=== PATIENT | male | born 1975 | race Caucasian/White ===

== ENCOUNTER 2023-08-04 14:39 | Emergency (ER) | payer BC, SELFPAY ==
[2023-08-04 14:41] VITALS: BP 125/85; PULSE 85; RESP 12; TEMP 36.3; O2SAT 97
--- NOTE | 2023-08-04 16:02 | ED.GENADUL_ITS ---
Discharge Plan Disposition Patient Disposition: Home Condition: Good Discharge Details Clinical Impression: Acute diarrhea Primary Care Provider: Unknown,Unknown ED Provider: Kaleigh Bro Home Meds and New Rx's Prescriptions: New ondansetron 4 mg tablet,disintegrating 4 mg PO Q8H PRNQty: 10 0RF Continued albuterol sulfate [Ventolin HFA] 8 GM HFA aerosol inhaler 1 - 2 puff Inhalation Q6H PRN Qty: 3 fluticasone propionate [Flonase] 16 GM spray,suspension 2 spry NS DAILY Qty: 1 Rx Instructions: 50MCG Discharge Instructions Instructions: Acute Diarrhea (ED) Additional Instructions: Call your primary care doctor today to schedule an appointment within one week to followup on your visit here. Tylenol and ibuprofen over the counter for pain; follow the directions on the bottle. Ondansetron up to every 8 hours as needed for vomiting. Return to the emergency department for new or worsening symptoms including fever, blood in your stool, severe abdominal pain, inability to keep down fluids, or if you have any other concerns. Discharge Data Discharge Date/Time-TO BE ENTERED AT DEPARTURE: 08/04/23 18:30 HPI General Mode of arrival: ambulatory . Date/Time Provider Initiated Documentation: 08/04/23 14:41 . Limitations to Documentation: no limitations . Information obtained by: patient . HPI Narrative: 48yo M with hx asthma presenting with diarrhea x 1 day. Returned from 8 day [employer] camping trip yesterday. Overnight developed diffuse crampy abdominal pain and frequent watery diarrhea, 'every 20 minutes'. No blood in stool. Associated nausea, 1-2 episodes of scant nonbloody emesis. Used water filtration on the trip. The cooler with their food did have ground beef which thawed and leaked over the recent of the contents on the cooler. No one else on the trip is sick to his knowledge. Subjectively febrile over night, did not take his temperature. Otherwise in his usual state of health with no rash, focal abdomianl pain, chest pain, shortness of breath, lightheadedness, or other concerns. Related Data Home Medications Medication Instructions Recorded Confirmed albuterol sulfate 90 mcg/actuation 1 - 2 puff inhalation Q6H PRN ##3 07/14/12 08/04/23 aerosol inhaler (Ventolin HFA) fluticasone propionate 50 2 spry NS DAILY ##1 01/16/13 08/04/23 mcg/actuation nasal spray,suspension (Flonase) ondansetron 4 mg disintegrating 4 mg PO Q8H PRN #10 tabs 08/04/23 tablet Previous Rx's Medication Instructions Recorded ondansetron 4 mg disintegrating 4 mg PO Q8H PRN #10 tabs 08/04/23 tablet Allergies Allergy/AdvReac Type Severity Reaction Status Date / Time erythromycin base AdvReac Mild GI UPSET Unverified 08/04/23 17:49 [Erythromycin Base] CAT HAIR Allergy Unknown Wheezing Uncoded 08/04/23 17:49 G. DOMESTICUS DUST MITE Allergy Unknown Wheezing Uncoded 08/04/23 17:49 MUGWORT Allergy Unknown unknown Uncoded 08/04/23 17:49 General Stated Complaint: Nausea/Vomit/Diar JERMAIN: 3 Review of Systems Narrative: see HPI Exam Narrative Exam Narrative: General: Alert, well appearing, well nourished, in no acute distress. Head: Normocephalic, atraumatic Neck: Trachea midline, ?Neck supple. ENT: ?MMM.? No oropharygeal lesions or exudate. Cardiac: ?RRR, no murmurs appreciated Resp: No respiratory distress. CTAB. Abd: ?Soft, non-distended, nontender : ?No suprapubic tenderness. No CVA tenderness. Extremities: ?No deformities.? No peripheral edema. Neurologic: GCS 15. ? Moves all extremities freely against gravity Course Vital Signs Vital signs: Vital Signs Temperature 36.3 C L 08/04/23 14:41 Pulse 85 08/04/23 14:41 Respiratory Rate 12 08/04/23 14:41 Blood Pressure 125/85 08/04/23 14:41 Pulse Oximetry 97 08/04/23 14:41 Temperature 36.3 C L 08/04/23 14:41 Temperature Source Temporal Artery Scan 08/04/23 14:41 Pulse 85 08/04/23 14:41 Respiratory Rate 12 08/04/23 14:41 Blood Pressure 125/85 08/04/23 14:41 Blood Pressure Position Sitting 08/04/23 14:41 Pulse Oximetry 97 08/04/23 14:41 Oxygen Delivery Method Room Air 08/04/23 14:41 Oxygen Flow Rate 0 08/04/23 14:41 Pain Level 4 08/04/23 14:41 Medical Decision Making 48yo M with hx asthma presenting with diarrhea x 1 day. Returned from 8 day canoe camping trip yesterday. Overnight developed diffuse crampy abdominal pain and frequent watery diarrhea, 'every 20 minutes'. No blood in stool. Associated nausea, 1-2 episodes of scant nonbloody emesis. Used water filtration on the trip. The cooler with their food did have ground beef which thawed and leaked over the recent of the contents on the cooler. Vital signs reassuring on arrival, afebrile. Benign abdominal exam with no tenderness. Would not get CT imaging. Will give 1L IVFB, zofran for nausea. Labs reviewed as below, CBC reassuring with no leukocytosis, CMP with no actionable abnormalities. PO challenged and tolerated well. Stool studies ordered but patient without further bowel movements while in the ED ~3 hours. Sytemically well, diarrhea lessening, reassuring labs, tolerating PO; no indication for admission. Exposure to thawing ground beef raises level of concern for e. coli; given this as well as short duration of symptoms would not treat with abx at this time. Advised to followup wtih PCP. Discharged home with prescription for zofran. Discharge instructions and return precautions reviewed with patient who verbalized understanding. All questions were answered and he is in agreement with the plan. Lab Data Lab results reviewed: Yes I reviewed the patient's lab results. Labs: Laboratory Tests Range/Units 08/04/23 10:05 WBC (4.4-10.8) 10^3/uL 5.82 RBC (4.36-5.78) 10^6/uL 5.98 H Hgb (13.5-17.5) g/dL 17.6 H Hct (40.0-50.0) % 51.8 H MCV (80-95) fL 87 MCH (27.0-33.0) pg 29.4 MCHC (32.0-36.0) % 34.0 RDW (11.8-14.1) % 12.7 Plt Count (130-400) 10^3/uL MPV (8.0-11.0) fL Immature Gran % % 0.3 Neutrophils % % 82.4 Lymphocytes % % 5.3 Monocytes % % 9.3 Eosinophils % % 2.4 Basophils % % 0.3 Nucleated RBC % (0.0-0.3) % 0.0 Absolute Neutrophils (1.2-6.7) 10^3/uL 4.79 Absolute Lymphocytes (1.2-3.4) 10^3/uL 0.31 L Absolute Monocytes (0.1-0.8) 10^3/uL 0.54 Absolute Eosinophils (0.0-0.7) 10^3/uL 0.14 Absolute Basophils (0.0-0.2) 10^3/uL 0.02 Sodium (136-145) mmol/L 137 Potassium (3.5-5.1) mmol/L 3.8 Chloride (98-107) mmol/L 100 Carbon Dioxide (21.0-32.0) mmol/L 24.9 Anion Gap (3-11) mmol/L 12.1 H BUN (7-18) mg/dL 15 Creatinine (0.70-1.30) mg/dL 1.1 Est GFR (CKD-EPI 2020) (mL/min/1.73m2) 83.32 Glucose (74-106) mg/dL 112 H Calcium (8.5-10.1) mg/dL 9.5 Magnesium (1.8-2.4) mg/dL 1.9 Total Bilirubin (0.2-1.0) mg/dL 0.7 AST (15-37) U/L 33 ALT (16-63) U/L 43 Alkaline Phosphatase (46-116) U/L 90 Total Protein (6.4-8.2) g/dL 8.3 H Albumin (3.4-5.0) g/dL 4.2 Quality:SDIL Health Related Social Needs: No Data to Display PFSH All Active Problems (Updated 08/04/23 @ 17:48 by Kaleigh Bro MD) Acute diarrhea (Acute) Social History Smoking/Tobacco Use Status: Never Smoking risk assessment performed?: Yes Alcohol Intake: never Drug use: Never Housing: house Do you feel safe at home: Yes Do you feel safe in your relationship?: Yes
[2023-08-04 16:23] LABS: Abs Immature Grans 0.02 10^3/uL (0.0-0.06); Absolute Basophil Count 0.02 10^3/uL (0.0-0.2); Absolute Eosinophil Count 0.14 10^3/uL (0.0-0.7); Absolute Lymphocyte Count 0.31 10^3/uL (1.2-3.4); Absolute Monocyte Count 0.54 10^3/uL (0.1-0.8); Absolute Neutrophil Count 4.79 10^3/uL (1.2-6.7); Basophils % 0.3 %; Eosinophils % 2.4 %; HCT 51.8 % (40.0-50.0); HGB 17.6 g/dL (13.5-17.5); Immature Grans % 0.3 %; Lymphocytes % 5.3 %; MCH 29.4 pg (27.0-33.0); MCV 87 fL (80-95); Monocytes % 9.3 %; Neutrophils % 82.4 %; RBC 5.98 10^6/uL (4.36-5.78); RDW 12.7 % (11.8-14.1); RDW-SD 40.1 fL; WBC 5.82 10^3/uL (4.4-10.8)
[2023-08-04] MEDS: Normal Saline 1,000 ML 1000 ML IV (16:35)
[2023-08-04] MEDS: Ondansetron 4 MG/2 ML VIAL IVP (16:36)
[2023-08-04 16:39] LABS: ALT 43 U/L (16-63); AST 33 U/L (15-37); Albumin 4.2 g/dL (3.4-5.0); Alkaline Phosphatase 90 U/L (46-116); Anion Gap 12.1 mmol/L (3-11); BUN 15 mg/dL (7-18); Bilirubin, Total 0.7 mg/dL (0.2-1.0); CO2 24.9 mmol/L (21.0-32.0); CREATININE 1.1 mg/dL (0.70-1.30); Calcium 9.5 mg/dL (8.5-10.1); Chloride 100 mmol/L (98-107); Estimated GFR 83.32 (mL/min/1.73m2); Glucose 112 mg/dL (74-106); Magnesium 1.9 mg/dL (1.8-2.4); Potassium 3.8 mmol/L (3.5-5.1); Sodium 137 mmol/L (136-145); Total Protein 8.3 g/dL (6.4-8.2)
[2023-08-04 18:16] VITALS: BP 125/70; PULSE 74; RESP 18; TEMP 36.3; O2SAT 98
[2023-08-04] MEDS: Ondansetron O.D.T. 4 MG TABEF, 3 TABS/BTL PO (18:19)
[2023-08-05 20:50] LABS: Campylobacter PCR Negative (Negative); Salmonella PCR Negative (Negative); Shiga Toxin PCR Negative (Negative); Shigella/Enteroinvasive Ecoli Negative (Negative)
== END 2023-08-04 18:30 | disposition home or self-care (01) ==
PROVIDERS: Emergency Provider Student in an Organized Health Care Education/Training Program
DX: R11.2 Nausea with vomiting, unspecified (principal); R19.7 Diarrhea, unspecified; R10.30 Lower abdominal pain, unspecified
CPT/HCPCS: 80053; 87505; 96361; 96374; 99284; 83735; 85025; 99283; J2405

== ENCOUNTER 2024-06-24 17:52 | Outpatient (REF) | payer MEDICAID, SELFPAY ==
[2024-06-24 16:52] LABS: Calculated LDL 152 mg/dL (<100); Cholesterol 244 mg/dL (<200); HDL Cholesterol 66 mg/dL (>or=40); Triglyceride 130 mg/dL (<150)
== END 2024-06-24 17:53 | disposition home or self-care (01) ==
LOC: NCHCN 17:52
PROVIDERS: Visit Provider Physician Assistant
DX: Z13.220 Encounter for screening for lipoid disorders (principal)
CPT/HCPCS: 80061